=== PATIENT | female | born 1965 | race Two or more races ===

== ENCOUNTER 2019-04-17 07:59 | Emergency (ER) | payer OTHER ==
[2019-04-17 09:42] VITALS: BP 119/81
--- NOTE | 2019-04-17 09:43 | ER Document Report ---
HPI - HPI Patient complains to provider of: Sore throat body aches Time Seen by Provider: 04/17/19 09:34 Onset: Other - Sunday Pain Level: 4 Context: 53-year-old female relatively healthy presents emergency department with complaints of sore throat body aches joint aches since Sunday. Reports her sinuses started hurting yesterday. Reports increased pain when she bends over. Denies fever vomiting diarrhea. Patient reports she works in [employer]. She reports she attempted to call in but they would let her. Associated Symptoms: Body/muscle aches, Sore throat Exacerbated by: Denies Relieved by: Denies Similar symptoms previously: No Recently seen / treated by doctor: No - CONSTITUTIONAL Constitutional: REPORTS: Fever, Chills - EENT EENT: REPORTS: Sore Throat, Ear Pain - REPRODUCTIVE LMP: Menopause Reproductive: DENIES: : Past Medical History - General Information source: Patient - Social History Smoking Status: Former Smoker Chew tobacco use (# tins/day): No Frequency of alcohol use: Rare Drug Abuse: None Occupation: [employer] Family History: Reviewed & Not Pertinent Patient has suicidal ideation: No Patient has homicidal ideation: No - Past Medical History Cardiac Medical History: Denies: Hx Coronary Artery Disease Pulmonary Medical History: Denies: Hx Asthma Endocrine Medical History: Denies: Hx Diabetes Mellitus Type 2 Psychiatric Medical History: Reports: Hx Depression Past Surgical History: Reports: Hx Appendectomy, Hx Gynecologic Surgery - ovarian cyst, Hx Tonsillectomy - Immunizations Hx Diphtheria, Pertussis, Tetanus Vaccination: Yes Vertical Provider Document - CONSTITUTIONAL Agree With Documented VS: Yes Exam Limitations: No Limitations General Appearance: WD/WN, No Apparent Distress - Nontoxic looking - INFECTION CONTROL TRAVEL OUTSIDE OF THE [place] IN LAST 30 DAYS: No - HEENT HEENT: Atraumatic, Normal ENT Exam, Normocephalic. negative: Conjuctival Injection, Pharyngeal Erythema, Tympanic Membrane Bulging - NECK Neck: Supple - RESPIRATORY Respiratory: Breath Sounds Normal, No Respiratory Distress - CARDIOVASCULAR Cardiovascular: Regular Rate - GI/ABDOMEN Gastrointestinal: Abdomen Soft, Abdomen Non-Tender - MUSCULOSKELETAL/EXTREMETIES Musculoskeletal/Extremeties: ZEESHAN TONEY - NEURO Level of Consciousness: Awake, Alert, Appropriate Motor/Sensory: No Motor Deficit - DERM Integumentary: Warm, Dry Course - Re-evaluation Re-evalutation: 04/17/19 09:35 Strep test negative, patient was instructed on negative strep. Instructed on throat culture pending. Instructed to take Motrin as indicated for pain follow- up with primary care provider for stay home rest push fluids. She verbalized understanding to all instructions - Vital Signs Vital signs: Temp Pulse Resp BP Pulse Ox 98.0 F 75 18 122/86 H 98 04/17/19 08:13 04/17/19 08:13 04/17/19 08:13 04/17/19 08:13 04/17/19 08:13 Discharge - Discharge Clinical Impression: Sore throat Condition: Stable Disposition: HOME, SELF-CARE Instructions: Sore Throat ([facility]) Additional Instructions: *You have been evaluated for a sore throat, body aches Your strep test is negative. A throat culture is pending. Should you need antibiotics they will contact you in 3 to 4 days *In the meantime gargle with warm salt water use throat lozenges as indicated for comfort Push fluids *Do not let anyone drink/eat after you *Good hand washing *Follow-up with a primary care provider within 1 week for recheck *Return to ED for worsening condition change, needs Forms: Return to Work Referrals: AUBRIE HASTINGS NP [Primary Care Provider] - Follow up in 1 week
== END 2019-04-17 09:48 | disposition home or self-care (01) ==
LOC: ER 07:59
DX: J02.9 Acute pharyngitis, unspecified (principal); M25.50 Pain in unspecified joint; J34.89 Other specified disorders of nose and nasal sinuses; H92.09 Otalgia, unspecified ear; M79.10 Myalgia, unspecified site; Z87.891 Personal history of nicotine dependence
CPT/HCPCS: 87070; 87880; 99283